=== PATIENT | female | born 1980 | race Hispanic/Latino ===

== ENCOUNTER → 2024-12-13 | Outpatient (CLI) | payer OTHER, MEDICARE ==
--- NOTE | 2024-12-13 17:19 | HMCIMG ---
EXAM: XR Knee Bilateral, 5 Views. CLINICAL HISTORY: 44-year-old female with bilateral knee pain COMPARISON: None provided. FINDINGS: RIGHT KNEE: BONES: No acute fracture or focal osseous lesion. JOINTS: No dislocation. The joint spaces are normal. SOFT TISSUES: The soft tissues are unremarkable. LEFT KNEE: BONES: No acute fracture or focal osseous lesion. JOINTS: No dislocation. The joint spaces are normal. SOFT TISSUES: The soft tissues are unremarkable. IMPRESSION: 1. No acute osseous abnormality in either knee. /Baker
== END | disposition home or self-care (01) ==
LOC: RAH 15:46
DX: M25.561 Pain in right knee (principal); M25.562 Pain in left knee; G89.29 Other chronic pain